=== PATIENT | male | born 1965 | race Caucasian/White ===

== ENCOUNTER 2024-04-29 18:33 | Emergency (ER) | payer OTHER, SELFPAY ==
--- NOTE | ~2024-04-29 | XR_ITS ---
[id number] Ordering provider: Maribeth Farrell NP History: . fall . Comparison: The FINDINGS: BONES: No acute right rib fracture or fracture of the visualized osseous structures. LUNGS: No effusions or infiltrates. No pneumothorax. SOFT TISSUES: Normal. IMPRESSION: No right rib fracture. No acute cardiopulmonary pathology. Reviewed, dictated and finalized at location [facility]. [facility]
--- NOTE | 2024-04-29 18:40 | ED_ITS ---
HPI - Fall General Chief Complaint: Fall Stated Complaint: right side rib pain Time Seen by Provider: 04/29/24 19:32 Mode of arrival: ambulatory Limitations: no limitations History of Present Illness HPI Narrative: 58-year-old male presents with concern for right posterior rib pain. Reports 1/2 weeks ago he fell and hit that area on some steps. 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 He has not taken any pain medicine. He reports he is a heavy smoker so he coughs a lot and it hurts to cough. complaint: fall Related Data Home Medications ?Medication ?Instructions ?Recorded ?Confirmed ?Last Taken ?Type albuterol sulfate 90 mcg/actuation inhalation 04/29/24 Unknown History aerosol inhaler amlodipine 10 mg tablet mg 04/29/24 Unknown History folic acid 1 mg tablet 04/29/24 Unknown History Allergies Allergy/AdvReac Type Severity Reaction Status Date / Time Penicillins Allergy Unknown Unknown Verified 04/29/24 18:45 Review of Systems Review of Systems: CONSTITUTIONAL: Denies malaise, chills, sweats, or fever. CARDIOVASCULAR: Denies anterior chest pain, palpitations, or edema. RESPIRATORY: Reports baseline cough. Denies dyspnea. SKIN: Denies bruising, redness, open skin MUSCULOSKELETAL: Reports low posterior right rib pain NEUROLOGIC: Denies numbness, weakness, or headache. PSYCHIATRIC: Denies anxiety or depression. All systems reviewed & are unremarkable except as noted in HPI and below PMFSH Comments At time of signature, agree with nursing past medical, surgical, social and family history. There is no relevant family history pertinent to the presenting complaint Exam Narrative: GENERAL: Nontoxic-appearing, well-nourished, and in no acute distress. HEAD: Normocephalic, atraumatic. EYES: PERRLA, sclera clear, and EOMI. No nystagmus. ENT: Nares clear, turbinates pink, no rhinorrhea or epistaxis. Mucous membranes moist. NECK: Supple. CHEST: No respiratory distress. Clear to auscultation. No bony deformities, no asymmetry. Speaks in full sentences. Right posterior lower rib tenderness HEART: Regular rate and rhythm. No murmur heard. Normal peripheral pulses. EXTREMITIES: Normal range of motion. No edema. Normal strength and sensation. SKIN: Warm, dry, no visible rash. NEURO: Alert and oriented x3. PSYCH: Normal mood and affect Course Course Emergency Course: Stat rib x-ray was put in over an hour ago, we are unable to get in touch with Radiology of why we do not currently have a result at 20:06. Patient would like to go home and be called with x-ray results in the morning. Pain management sent to patient's pharmacy, anticipatory guidance given Patient is aware of diagnosis, understands and agrees to treatment plan. Anticipatory guidance given. Patient agrees to follow-up as directed and is aware of reasons to seek care at the emergency department. Portions of this record may have been created with voice recognition software Level of Care: Express Care Visit Vital Signs Vital signs: Reviewed. MDM - Fall MDM Narrative Medical decision making narrative: Patients injury and pain is consistent with musculoskeletal etiology. No signs of neurological or vascular compromise on exam. Compartments and tissues are soft without signs of compartment syndrome. Pain is felt appropriate for further evaluation on an outpatient basis. Critical Care Time Critical Care Time Critical Care Time: No Discharge Plan Discharge Clinical Impression: Contusion of rib on right side Patient Disposition: Home, Self-Care Condition: Stable Instructions: Antibiotic Form, Rib Contusion (ED) Additional Instructions: A Member of the urgent care staff will call you in the morning regarding her x- ray results Breathing exercises will not be effective unless your pain is controlled. Take anti-inflammatories as prescribed, you can take muscle relaxers as needed. Muscle relaxers my make you tired so you should know how they affect you before you work or drive while taking them. Strenuous activities should be avoided for the first 3-4 weeks, after which you can commence physical activity as pain allows. If the pain is increasing you may be doing too much. Cough and deep breath at least 10 times per hour. Try holding a cushion firmly against the painful site when you deep breath and cough to decrease the pain. Sit out of bed and keep moving as much as you feel comfortable. This will decrease the risk of developing lung complications. Patient Language: Mongolian Prescriptions: New cyclobenzaprine 10 mg tablet 10 mg PO TID PRN (Reason: muscle spasm) Qty: 20 0RF ibuprofen 800 mg tablet 800 mg PO Q6H PRN (Reason: pain) Qty: 30 0RF No Action amlodipine 10 mg tablet folic acid 1 mg tablet albuterol sulfate 90 mcg/actuation HFA aerosol inhaler INHALATION Follow-up/Referrals: Nic,Jaylon Boyle MD [Primary Care Provider] - Time of Disposition: 19:41
[2024-04-29 18:46] VITALS: BP 138/85; PULSE 64; RESP 16; TEMP 37; O2SAT 98
== END 2024-04-29 20:09 | disposition home or self-care (01) ==
PROVIDERS: Emergency Provider Nurse Practitioner; PCP Internal Medicine
DX: S20.221A Contusion of right back wall of thorax, initial encounter (principal); W19.XXXA Unspecified fall, initial encounter; I10 Essential (primary) hypertension
CPT/HCPCS: 71101; 99213; G0463